=== PATIENT | male | born 1940 | race Caucasian/White ===

== ENCOUNTER 2017-10-21 09:47 | Emergency (ER) | payer MEDICARE ==
[2017-10-21 09:52] VITALS: BP 184/102
--- NOTE | 2017-10-21 10:10 | ER Document Report ---
ED GI/ - General Chief Complaint: Inability to Void Stated Complaint: URINARY PROBLEM Time Seen by Provider: 10/21/17 10:06 Notes: Chief complaint: Urinary retention History of complain:( obtained from----patient) 77 years old male with a history of hypertension dementia and TIA, presents with acute urinary retention since last night 7:00. That was his last urination. Prep prior to that there were no problem urinating according to him. Having suprapubic discomfort. No fever chills or other constitutional symptoms did not take any [id number] medications. No other constitutional symptoms Onset: As above Duration: Since last night Severity: Moderate Quality: Sharp Context: As described above Exacerbating factor and relieving factors: None REVIEW OF SYSTEMS: CONSTITUTIONAL : Denies fever, chills, or sweats. Denies recent illness. EENT: Denies eye, ear, throat, or mouth pain or symptoms. Denies nasal or sinus congestion or discharge. Denies throat, tongue, or mouth swelling or difficulty swallowing. CARDIOVASCULAR: Denies chest pain. Denies palpitations or racing or irregular heart beat. Denies ankle edema. RESPIRATORY: Denies cough, cold, or chest congestion. Denies shortness of breath, difficulty breathing, or wheezing. GASTROINTESTINAL: Denies distention. Denies nausea, vomiting, or diarrhea. Denies blood in vomitus, stools, or per rectum. Denies black, tarry stools. Denies constipation. GENITOURINARY: Denies difficulty urinating, painful urination, burning, frequency, blood in urine, or discharge. FEMALE GENITOURINARY: Denies vaginal bleeding, heavy or abnormal periods, irregular periods. Denies vaginal discharge or odor. MUSCULOSKELETAL: Denies back or neck pain or stiffness. Denies joint pain or swelling. SKIN: Denies rash, lesions or sores. HEMATOLOGIC : Denies easy bruising or bleeding. LYMPHATIC: Denies swollen, enlarged glands. NEUROLOGICAL: Denies confusion or altered mental status. Denies passing out or loss of consciousness. Denies dizziness or lightheadedness. Denies headache. Denies weakness or paralysis or loss of use of either side. Denies problems with gait or speech. Denies sensory loss, numbness, or tingling. Denies seizures. PSYCHIATRIC: Denies anxiety or stress. Denies depression, suicidal ideation, or homicidal ideation. ALL OTHER SYSTEMS REVIEWED AND NEGATIVE. PHYSICAL EXAMINATION: GENERAL: Well-appearing, well-nourished and in no acute distress. Pleasant male HEAD: Atraumatic, normocephalic. EYES: Pupils equal round and reactive to light, extraocular movements intact, conjunctiva are normal. ENT: Nares patent, oropharynx clear without exudates. Moist mucous membranes. NECK: Normal range of motion, supple without lymphadenopathy LUNGS: Breath sounds clear to auscultation bilaterally and equal. No wheezes rales or rhonchi. HEART: Regular rate and rhythm without murmurs ABDOMEN: Soft, nontender, nondistended abdomen. No guarding, no rebound. No masses appreciated. Examination of genitals-deferred Musculoskeletal: Normal range of motion, no pitting or edema. No cyanosis. NEUROLOGICAL: Cranial nerves grossly intact. Normal speech, normal gait. Normal sensory, motor exams PSYCH: Normal mood, normal affect. SKIN: Warm, Dry, normal turgor, no rashes or lesions noted. Dictation was performed using [employer] voice recognition software TRAVEL OUTSIDE OF THE [place] IN LAST 30 DAYS: No - HPI Notes: 10/21/17 10:09 Dictated - Related Data Allergies/Adverse Reactions: No Known Allergies Allergy (Verified 10/21/17 09:54) Past Medical History - Social History Smoking Status: Current Some Day Smoker Cigarette use (# per day): No Chew tobacco use (# tins/day): No Smoking Education Provided: No Frequency of alcohol use: Rare Drug Abuse: None Lives with: Family Family History: Reviewed & Not Pertinent Review of Systems - Review of Systems Notes: Dictated Physical Exam - Vital signs Vitals: Temp Pulse Resp BP Pulse Ox 97.9 F 91 18 184/102 H 96 10/21/17 09:51 10/21/17 09:51 10/21/17 09:51 10/21/17 09:51 10/21/17 09:51 - Notes Notes: Dictated Course - Vital Signs Vital signs: Temp Pulse Resp BP Pulse Ox 97.9 F 91 18 184/102 H 96 10/21/17 09:51 10/21/17 09:51 10/21/17 09:51 10/21/17 09:51 10/21/17 09:51 10/21/17 13:51 Hernandez catheter was inserted and bladder was drained, ceftriaxone given for UTI - Laboratory Result Diagrams: 10/21/17 10:38 10/21/17 10:38 Laboratory results interpreted by me: 10/21/17 10/21/17 10/21/17 10:38 10:38 11:29 WBC 15.9 H Potassium 3.5 L AST 15 L Alkaline Phosphatase 133 H Urine Blood MODERATE H Discharge - Discharge Clinical Impression: Acute urinary retention, Prostatic hypertrophy UTI (urinary tract infection) Qualifiers: Urinary tract infection type: acute cystitis Hematuria presence: with hematuria Qualified Code(s): N30.01 - Acute cystitis with hematuria Condition: Fair Disposition: HOME, SELF-CARE Instructions: Urinary Tract Infection ([facility]), Prostatic Hypertrophy ([facility]), Hernandez Catheter Care ([facility]) Prescriptions: Cefuroxime Axetil [Ceftin 500 mg Tablet] 500 mg PO BID #20 tablet Tamsulosin HCl 0.4 mg PO DAILY #30 capsule
[2017-10-21 10:56] LABS: HEMATOCRIT 47.1 % (37.9-51.0); HEMOGLOBIN 16.6 g/dL (13.5-17.0); MEAN CORPUSCULAR HEMOGLOBIN 30.7 pg (27.0-33.4); MEAN CORPUSCULAR HGB CONC 35.3 g/dL (32.0-36.0); MEAN CORPUSCULAR VOLUME 87 fl (80-97); PLATELET COUNT 202 10^3/uL (150-450); RED BLOOD COUNT 5.42 10^6/uL (4.35-5.55); RED CELL DISTRIBUTION WIDTH 13.3 % (11.5-14.0); WHITE BLOOD COUNT 15.9 10^3/uL (4.0-10.5)
[2017-10-21] MEDS ORDERED: LIDOCAINE 2% URO-JET 5 ML KIT MM ONE (10:57)
[2017-10-21 11:10] LABS: ALANINE AMINOTRANSFERASE 23 U/L (21-72); ALBUMIN 4.4 g/dL (3.5-5.0); ALKALINE PHOSPHATASE 133 U/L (38-126); ANION GAP 16 (5-19); ASPARTATE AMINO TRANSFERASE 15 U/L (17-59); BILIRUBIN,DIRECT 0.3 mg/dL (0.0-0.4); BILIRUBIN,TOTAL 0.9 mg/dL (0.2-1.3); BLOOD UREA NITROGEN 12 mg/dL (7-20); CALCIUM 9.2 mg/dL (8.4-10.2); CARBON DIOXIDE 22 mmol/L (22-30); CHLORIDE 105 mmol/L (98-107); GLUCOSE 109 mg/dL (75-110); POTASSIUM 3.5 mmol/L (3.6-5.0); SODIUM 143.1 mmol/L (137-145); TOTAL PROTEIN 7.7 g/dL (6.3-8.2)
[2017-10-21] MEDS ORDERED: CEFTRIAXONE 1 GM/D5W RTU 50 ML IV ONE (13:05)
[2017-10-21] MEDS ORDERED: LIDOCAINE 1% INJ-PF (10 MG/ML) 30 ML SDV INJ ONE (13:30)
[2017-10-21] MEDS ORDERED: CEFTRIAXONE INJ 1000 MG VIAL IV ONE (13:30)
[2017-10-21] MEDS ORDERED: CEFTRIAXONE INJ 1000 MG VIAL IM ONE (13:31)
[2017-10-21 13:37] LABS: APPEARANCE,URINE CLEAR; BILIRUBIN,URINE NEGATIVE (NEGATIVE); COLOR,URINE YELLOW; GLUCOSE, URINE NEGATIVE (NEGATIVE); KETONES,URINE NEGATIVE (NEGATIVE); LEUKOCYTE ESTERASE,URINE NEGATIVE (NEGATIVE); NITRITE,URINE NEGATIVE (NEGATIVE); PROTEIN,URINE NEGATIVE (NEGATIVE); URINE SPECIFIC GRAVITY 1.011; UROBILINOGEN,URINE NEGATIVE mg/dL (<2.0)
== END 2017-10-21 14:29 | disposition home or self-care (01) ==
LOC: ER 09:47
DX: N30.01 Acute cystitis with hematuria (principal); N40.0 Benign prostatic hyperplasia without lower urinary tract symptoms; R33.9 Retention of urine, unspecified; I10 Essential (primary) hypertension; F03.90 Unspecified dementia, unspecified severity, without behavioral disturbance, psychotic disturbance, mood disturbance, and anxiety; Z86.73 Personal history of transient ischemic attack (TIA), and cerebral infarction without residual deficits; F17.200 Nicotine dependence, unspecified, uncomplicated
CPT/HCPCS: 99284; 96372; 51702; 36415; 85027; 80053; 81001; C1758; J3490; J0696; A9270

== ENCOUNTER 2018-09-01 17:25 | Emergency (ER) | payer MEDICARE ==
[2018-09-01] MEDS ORDERED: BUTALB/ACETAMINOPHEN/CAFFEINE 1 TAB EACH PO ONE (18:18)
[2018-09-01] MEDS ORDERED: ONDANSETRON HCL INJ/PF 4 MG/2 ML SDV IV ONE (18:19)
--- NOTE | 2018-09-01 18:19 | ER Document Report ---
ED Medical Screen (RME) - General Chief Complaint: Headache Stated Complaint: HEADACHE Time Seen by Provider: 09/01/18 18:17 Mode of Arrival: Ambulatory Information source: Patient Notes: Patient reports frontal headache pain that started around 11 AM while cleaning a room. Patient does report nausea and vomiting x1 episode today. No fever, no head injury. Patient states headache pain has varied in intensity throughout the day. I have greeted and performed a rapid initial assessment of this patient. A comprehensive ED assessment and evaluation of the patient, analysis of test results and completion of the medical decision making process will be conducted by additional ED providers. TRAVEL OUTSIDE OF THE [place] IN LAST 30 DAYS: No - Related Data Allergies/Adverse Reactions: No Known Allergies Allergy (Verified 09/01/18 17:26) Past Medical History - Social History Frequency of alcohol use: Occasional Drug Abuse: None - Past Medical History Cardiac Medical History: Reports: Hx Hypertension Renal/ Medical History: Denies: Hx Peritoneal Dialysis Past Surgical History: Reports: Hx Tonsillectomy Physical Exam - Vital signs Vitals: Temp Pulse Resp BP Pulse Ox 97.9 F 67 13 160/85 H 97 09/01/18 17:58 09/01/18 17:58 09/01/18 17:58 09/01/18 17:58 09/01/18 17:58 - Neurological Neuro grossly intact: Yes Cognition: Normal Welda Coma Scale Eye Opening: Spontaneous Welda Coma Scale Verbal: Oriented Tahir Coma Scale Motor: Obeys Commands Welda Coma Scale Total: 15 Course - Vital Signs Vital signs: Temp Pulse Resp BP Pulse Ox 97.9 F 67 13 160/85 H 97 09/01/18 17:58 09/01/18 17:58 09/01/18 17:58 09/01/18 17:58 09/01/18 17:58
--- NOTE | 2018-09-01 18:56 | RADIOLOGY REPORT (SQ) ---
EXAM DESCRIPTION: CT HEAD WITHOUT COMPLETED DATE/TIME: 09/01/2018 6:42 pm REASON FOR STUDY: headache COMPARISON: None. TECHNIQUE: Axial images acquired through the brain without intravenous contrast. Images reviewed wi th bone, brain and subdural windows. Additional sagittal and coronal reconstructions were generated. Images stored on PACS. All CT scanners at this facility use dose modulation, iterative reconstruction, and/or weight based d osing when appropriate to reduce radiation dose to as low as reasonably achievable (ALARA). [facility]: Dose Right [facility]: CareDose [facility]: Dose Right [facility]: Teradose 4D [facility]: Smart CAL [employer] RADIATION DOSE: CT Rad equipment meets quality standard of care and radiation dose reduction techniq ues were employed. CTDIvol: 53.2 mGy. DLP: 1044 mGy-cm. mGy. LIMITATIONS: None. FINDINGS: VENTRICLES: Normal size and contour. CEREBRUM: No masses. No hemorrhage. No midline shift. No evidence for acute infarction. Areas of l ow density in the white matter most likely chronic small vessel ischemic changes. CEREBELLUM: No masses. No hemorrhage. No alteration of density. No evidence for acute infarction. EXTRAAXIAL SPACES: No fluid collections. No masses. ORBITS AND GLOBE: No intra- or extraconal masses. Normal contour of globe without masses. CALVARIUM: No fracture. PARANASAL SINUSES: No fluid or mucosal thickening. SOFT TISSUES: No mass or hematoma. OTHER: No other significant finding. IMPRESSION: MILD CHRONIC MICROVASCULAR ISCHEMIA. NO ACUTE IMAGING FINDINGS IN THE BRAIN. EVIDENCE OF ACUTE STROKE: NO. COMMENT: Quality ID # [id number]: Final reports with documentation of one or more dose reduction techniques (e.g., Automated exposure control, adjustment of the mA and/or kV according to patient size, use of iterative reconstruction technique) TECHNICAL DOCUMENTATION: JOB ID: [id number] [employer]- All Rights Reserved Reading location - IP/workstation name: [email or web address]
[2018-09-01] MEDS ORDERED: LIDOCAINE 1% INJ-PF (10 MG/ML) 30 ML SDV INJ ONE (20:28)
--- NOTE | 2018-09-01 20:32 | ER Document Report ---
ED Headache - General Chief Complaint: Headache Stated Complaint: HEADACHE Time Seen by Provider: 09/01/18 18:17 Primary Care Provider: BARRINGTON SUBRAMANIAN PA [Primary Care Provider] - Follow up as needed Mode of Arrival: Ambulatory Notes: Patient is a 78-year-old male that comes to the emergency department for chief complaint of headache. Headache is frontal mainly, started at about 11 AM this morning, he states it was severe this morning and "nothing like I have ever had", he states that he vomited once, headache is improved now and still improved after medications from triage but has not resolved. He denies head injury, neck pain, fever/chills, visual changes, focal numbness or weakness. He lives with his daughter who states he has never once complained of a headache in 5 years. Past medical history of hypertension, tonsillectomy, no other medical history reported. He is not on a blood thinner. TRAVEL OUTSIDE OF THE [place] IN LAST 30 DAYS: No - Related Data Allergies/Adverse Reactions: No Known Allergies Allergy (Verified 09/01/18 17:26) Past Medical History - General Information source: Patient - Social History Smoking Status: Current Every Day Smoker Frequency of alcohol use: Occasional Drug Abuse: None Lives with: Family Family History: Reviewed & Not Pertinent Patient has suicidal ideation: No Patient has homicidal ideation: No - Past Medical History Cardiac Medical History: Reports: Hx Hypertension Renal/ Medical History: Denies: Hx Peritoneal Dialysis Past Surgical History: Reports: Hx Tonsillectomy - Immunizations Immunizations up to date: Yes Hx Diphtheria, Pertussis, Tetanus Vaccination: Yes Review of Systems - Review of Systems Constitutional: No symptoms reported EENT: No symptoms reported Cardiovascular: No symptoms reported Respiratory: No symptoms reported Gastrointestinal: See HPI Genitourinary: No symptoms reported Male Genitourinary: No symptoms reported Musculoskeletal: No symptoms reported Skin: No symptoms reported Hematologic/Lymphatic: No symptoms reported Neurological/Psychological: See HPI Physical Exam - Vital signs Vitals: Temp Pulse Resp BP Pulse Ox 97.9 F 67 13 160/85 H 97 09/01/18 17:58 09/01/18 17:58 09/01/18 17:58 09/01/18 17:58 09/01/18 17:58 - Notes Notes: GENERAL: Alert, interacts well. No acute distress. HEAD: Normocephalic, atraumatic. EYES: Pupils equal, round, and reactive to light. Extraocular movements intact. ENT: Oral mucosa moist, tongue midline. Oropharynx unremarkable. Airway patent. Nares patent, no nasal septal hematoma, TM's intact. NECK: Full range of motion. Supple. Trachea midline. LUNGS: Clear to auscultation bilaterally, no wheezes, rales, or rhonchi. No respiratory distress. HEART: Regular rate and rhythm. No murmur ABDOMEN: Soft, non-tender. Non-distended. Bowel sounds present in all 4 quadrants. GENITOURINARY: Deferred EXTREMITIES: Moves all 4 extremities spontaneously. No edema, normal radial and dorsalis pedis pulses bilaterally. No cyanosis. BACK: no cervical, thoracic, lumbar midline tenderness. No saddle anesthesia, normal distal neurovascular exam. Moves all extremities in full range of motion. NEUROLOGICAL: Alert and oriented x3. Normal speech. Occasionally repeats the same story or question. Cranial nerves II through XII grossly intact. PSYCH: Normal affect, normal mood. SKIN: Warm, dry, normal turgor. No rashes or lesions noted. Course - Re-evaluation Re-evalutation: Patient occasionally repeats himself but this is apparently baseline per daughter. I am concerned about the patient because he headache was maximal at onset, patient does not have a history of headaches, headache is improved significantly but has not resolved despite treatment. In addition to this the CAT scan of the head was outside of the 6-hour window from headache onset. Fortunately patient does not appear ill and he does not have any neurological deficits. He is actually quite well-appearing and talkative. Because of the and characteristic headache, severity of the headache initially including vomiting, and because the headache is not resolved still I discussed with patient and daughter different options. Decision was made to proceed with lumbar puncture after discussion of pros and cons in addition to risks to rule out subarachnoid hemorrhage. Patient is not on a blood thinner reportedly. I discussed with Dr. Steele. Lumbar puncture was fortunately achieved without any difficulty. This is very clear, there is no evidence of subarachnoid hemorrhage or meningitis. I reevaluated patient. He did lie flat for over an hour after the procedure, he states his head still feels slightly better compared to when I first evaluated him although his headache is not 100% gone. He still is excellent in appearance. Because of his appearance I do not suspect venous sinus thrombosis. He still has no neurological deficits on my reevaluation. He is requesting to go home, he is provided with [place] and Zofran at home, he is going home with the daughter, they are to perform close primary care follow-up and he is to return if he worsens in any way. Patient states satisfaction and agreement with plan. - Vital Signs Vital signs: Temp Pulse Resp BP Pulse Ox 98.0 F 62 16 173/96 H 94 09/01/18 23:30 09/01/18 23:30 09/01/18 23:30 09/01/18 23:30 09/01/18 23:30 Procedures - Lumbar Puncture Lumbar puncture Consent obtained: Yes Lumbar puncture pre-procedure: Sterile PPE donned, Chloraprep applied Patient position: Sitting Anesthetic type: 1% Lidocaine mL's of anesthetic: 5 Amount/type of drainage: Clear Number of attempts: 1 Complications: No Discharge - Discharge Clinical Impression: Headache Qualifiers: Headache type: unspecified Headache chronicity pattern: acute headache Intractability: intractable Qualified Code(s): R51 - Headache Condition: Stable Disposition: HOME, SELF-CARE Additional Instructions: Your CAT scan of the head does not show any concerning findings, your lumbar puncture does not show any concerning abnormality. You have been provided with pain and nausea medication to take at home if needed, you may experience some headaches over the next few days from the lumbar puncture. This should resolve. Drink plenty of fluids, rest, take Tylenol, ibuprofen, or if needed the stronger pain medication. Follow-up closely with primary care for additional evaluation if headaches continue. Return if you worsen including a more severe headache, neck stiffness, fever/chills, vomiting, or any other concerning or worsening symptoms. Referrals: BARRINGTON SUBRAMANIAN PA [Primary Care Provider] - Follow up as needed
[2018-09-01 22:38] LABS: GLUCOSE,CSF 63 mg/dL (40-70); PROTEIN,CSF 37 mg/dL (12-60)
[2018-09-01 22:44] LABS: APPEARANCE ALL TUBES CLEAR; COLOR ALL TUBES COLORLESS; CSF TOTAL VOLUME 5.7 CC; CSF TUBE NUMBER 1; VOLUME TUBE 1 1.3 CC; VOLUME TUBE 2 1.7 CC; VOLUME TUBE 3 1.2 CC; VOLUME TUBE 4 1.5 CC
[2018-09-01 22:49] LABS: RED BLOOD CELL,CSF 2 /uL (0-10)
[2018-09-01 22:51] LABS: WHITE BLOOD CELL,CSF 0 /uL (0-5)
[2018-09-01 22:54] LABS: APPEARANCE ALL TUBES CLEAR; COLOR ALL TUBES COLORLESS; CSF TOTAL VOLUME 5.7 CC; CSF TUBE NUMBER 4; VOLUME TUBE 1 1.3 CC; VOLUME TUBE 2 1.7 CC; VOLUME TUBE 3 1.2 CC; VOLUME TUBE 4 1.5 CC
[2018-09-01 22:59] LABS: RED BLOOD CELL,CSF 0 /uL (0-10)
[2018-09-01 23:00] LABS: WHITE BLOOD CELL,CSF 0 /uL (0-5)
[2018-09-01] MEDS ORDERED: ONDANSETRON ODT 4 MG TAB (6 TAB/ER DISP) PO PRN (23:12)
[2018-09-01] MEDS ORDERED: HYDROCODONE/ACETAMINOPHEN 5-325 MG (6 TAB/ER DISP) PO PRN (23:12)
[2018-09-01 23:42] VITALS: BP 173/96
--- NOTE | 2018-09-02 03:45 | ER Document Report ---
Doctor's Note Notes: I personally and independently obtained patient history and examined the patient in conjunction with the APC and agree with the assessment, treatment plan and disposition of the patient as recorded by the APC, and have reviewed the APC's note. HISTORY OF PRESENT ILLNESS: Patient is a 78-year-old male that presents to the emergency department for chief complaint of headache. ROS: Constitutional: Negative for fever. Cardiovascular: Negative for chest pain. Respiratory: Negative for shortness of breath. Gastrointestinal: Negative for vomiting or abdominal pain Musculoskeletal: Negative for arm, leg or back pain Skin: Negative for rash. Neurological: Negative for weakness or numbness. Other than noted above, the 12 point review of systems was reviewed with the patient and were negative, all pertinent findings are included in the HPI. PHYSICAL EXAMINATION: Vital signs reviewed, nursing noted reviewed. GENERAL: Well-appearing, well-nourished and in no acute distress. HEAD: Atraumatic, normocephalic. EYES: Eyes appear normal, conjunctiva are normal. LUNGS: Breath sounds clear to auscultation bilaterally and equal. No wheezes rales or rhonchi. HEART: Regular rate and rhythm without murmurs EXTREMITIES: Nontender, good range of motion, no pitting or edema. NEUROLOGICAL: No focal neurological deficits. Moves all extremities spontaneously Motor and sensory grossly intact on exam. PSYCH: Normal mood, normal affect. SKIN: Warm, Dry, normal turgor, no rashes or lesions noted on exposed skin MEDICAL DECISION MAKING: Patient seen and examined, vital signs reviewed, patient presented with an acute headache, that occurred earlier today, and seemingly is better now, I discussed this case with Gilmer Stinson PA-C, and because the onset, despite having a negative CT, we decided to go forward and get the lumbar puncture which the patient was agreeable to, procedure performed by Gilmer Stinson PA-C under my direct supervision, and was successful on first attempt. Results were reviewed, and is unremarkable CSF, not concerning for any blood, or xanthochromia, or concern for infectious etiology. Patient seemed improved and was discharged home. Please review detail APC documentation. *Note is created using voice recognition software and may contain spelling, syntax or grammatical errors. Microbiology 09/01/18 21:41 Gram Stain - Preliminary Cerebral Spinal Fluid - Csf Laboratory 09/01/18 09/01/18 09/01/18 21:41 21:41 21:42 Fluid Tube Number 1 4 CSF Volume 5.7 5.7 CSF Appearance CLEAR CLEAR CSF Color COLORLESS COLORLESS CSF WBC 0 0 CSF RBC 2 0 CSF Glucose 63 CSF Total Protein 37
== END 2018-09-01 23:42 | disposition home or self-care (01) ==
LOC: ER 17:25
DX: R51 Headache (principal); R11.2 Nausea with vomiting, unspecified; I10 Essential (primary) hypertension
CPT/HCPCS: 99284; 96374; 87070; 87205; 89050; 82945; 84157; 70450; 62270; A9270 ×3; J2405; J3490